=== PATIENT | male | born 1965 | race Caucasian/White ===

== ENCOUNTER 2022-03-17 12:31 | Inpatient (IN) | payer OTHER ==
[2022-03-17 16:01] VITALS: BMI 21.3
[2022-03-17] MEDS ORDERED: cloNIDine HCL 0.1 MG TABLET PO STA (16:08)
[2022-03-17] MEDS ORDERED: IBUPROFEN 400 MG TABLET (FP) PO PRN (16:11)
[2022-03-17] MEDS ORDERED: guaiFENesin 200 MG/10 ML 10 ML UNIT-DOSE CUPS PO PRN (16:11)
[2022-03-17] MEDS ORDERED: P-EPHED 60MG/TRIPROLIDI 2.5MG TABLET PO PRN (16:11)
[2022-03-17] MEDS ORDERED: MAGNESIUM HYDROX 2400MG/30ML ORAL SUSPENSION 30 ML CUP PO PRN (16:11)
[2022-03-17] MEDS ORDERED: NICOTINE 10 MG CARTRIDGE (INHALER) IH PRN (16:11)
[2022-03-17] MEDS ORDERED: LOPERAMIDE HCL 2 MG CAPSULE PO PRN (16:11)
[2022-03-17] MEDS ORDERED: MAG HYDROX/AL HYDROX/SIMETH 30 ML UNIT-DOSE CUP PO PRN (16:11)
[2022-03-17] MEDS ORDERED: MAGNESIUM CITRATE 300 ML BOTTLE PO PRN (16:11)
[2022-03-17] MEDS ORDERED: ACETAMINOPHEN 325 MG TABLET (FP) PO PRN (16:11)
[2022-03-17] MEDS ORDERED: cloNIDine HCL 0.1 MG TABLET ONE (16:17)
[2022-03-17] MEDS: hydrOXYzine PAMOATE 25 MG CAPSULE (FP) PO SCH ×2 (19:50→21:02)
[2022-03-17] MEDS: NICOTINE 7 MG/24 HOURS TOPICAL PATCH TD SCH (19:50)
[2022-03-17] MEDS: PRENATAL VITAMINS W/ FOLIC ACID TABLET (FP) PO SCH (19:50)
[2022-03-17] MEDS ORDERED: TUBERCULIN PPD 5 TU/0.1ML VIAL ID ONE (19:51)
[2022-03-17] MEDS: MELATONIN 5 MG TABLETS PO SCH (21:02)
[2022-03-17] MEDS: THIAMINE HCL 100 MG TABLET (FP) PO SCH (21:02)
[2022-03-18] MEDS: hydrOXYzine PAMOATE 25 MG CAPSULE (FP) PO SCH ×5 (06:02→21:05)
[2022-03-18] MEDS: PRENATAL VITAMINS W/ FOLIC ACID TABLET (FP) PO SCH (09:45)
[2022-03-18] MEDS: NICOTINE 7 MG/24 HOURS TOPICAL PATCH TD SCH (09:46)
[2022-03-18 11:30] LABS: CALCIUM 9.8 mg/dL (8.5-10.1)
[2022-03-18 11:31] LABS: BLOOD UREA NITROGEN 12.2 mg/dL (7-18)
[2022-03-18 11:35] LABS: BILIRUBIN,TOTAL 0.9 mg/dL (0.2-1); HEMATOCRIT 46.1 % (35.4-49); HEMOGLOBIN 15.7 GM/dL (11.7-16.9); MCH 32.9 pg (25.7-33.7); MEAN CELL VOLUME 96.7 fl (80-96); MEAN PLT VOLUME 7.5 fl (7.5-11.1); PLATELET COUNT 154 10^3/uL (134-434); RBC 4.77 M/mm3 (4.00-5.60); RDW 14.9 % (11.9-15.9); TOT PROT 7.1 g/dl (6.4-8.2); WHITE BLOOD COUNT 6.8 K/mm3 (4.0-10.0)
[2022-03-18] MEDS: amLODIPine BESYLATE 10 MG TABLET (FP) PO SCH (11:35)
[2022-03-18] MEDS ORDERED: FLU VACC QS2022-23(6MOS UP)/PF 60 MCG/0.5 ML SYRINGE IM ONE (12:00)
[2022-03-18 12:03] LABS: EPI CELLS 5 /uL (0-25.1); HYALINE CASTS 1 /uL (0-3.1); URINE APPEARANCE CLEAR; URINE BACTERIA 2 /uL (0-1359); URINE BILIRUBIN 1+ (NEGATIVE); URINE COLOR DK YELLOW; URINE GLUCOSE (UA) NEGATIVE (NEGATIVE); URINE KETONE 1+ (NEGATIVE); URINE LEUK ESTERASE TRACE (NEGATIVE); URINE NITRITE NEGATIVE (NEGATIVE); URINE PROTEIN TRACE (NEGATIVE); URINE RBC 15 /uL (0-23.9); URINE WBC 9 /uL (0-25.8)
[2022-03-18] MEDS: HYDROCHLOROTHIAZIDE 12.5 MG CAPSULE (FP) PO SCH (16:33)
[2022-03-18] MEDS: THIAMINE HCL 100 MG TABLET (FP) PO SCH (21:05)
[2022-03-18] MEDS: MELATONIN 5 MG TABLETS PO SCH (21:05)
[2022-03-19] MEDS: hydrOXYzine PAMOATE 25 MG CAPSULE (FP) PO SCH ×5 (06:01→21:09)
[2022-03-19] MEDS: PRENATAL VITAMINS W/ FOLIC ACID TABLET (FP) PO SCH (10:12)
[2022-03-19] MEDS: HYDROCHLOROTHIAZIDE 12.5 MG CAPSULE (FP) PO SCH (10:12)
[2022-03-19] MEDS: NICOTINE 7 MG/24 HOURS TOPICAL PATCH TD SCH (10:12)
[2022-03-19] MEDS: amLODIPine BESYLATE 10 MG TABLET (FP) PO SCH (10:12)
[2022-03-19] MEDS ORDERED: cloNIDine HCL 0.1 MG TABLET PO ONE (14:45)
[2022-03-19] MEDS: MELATONIN 5 MG TABLETS PO SCH (21:09)
[2022-03-19] MEDS: THIAMINE HCL 100 MG TABLET (FP) PO SCH (21:09)
[2022-03-19 22:12] LABS: SYPHILIS W/ RPR CONF NON-REACTIVE (NONREACTIVE)
[2022-03-20] MEDS: hydrOXYzine PAMOATE 25 MG CAPSULE (FP) PO SCH ×5 (06:18→21:07)
[2022-03-20] MEDS ORDERED: cloNIDine HCL 0.1 MG TABLET PO PRN (09:21)
[2022-03-20] MEDS: amLODIPine BESYLATE 10 MG TABLET (FP) PO SCH (10:05)
[2022-03-20] MEDS: HYDROCHLOROTHIAZIDE 25 MG TABLET (FP) PO SCH (10:05)
[2022-03-20] MEDS: PRENATAL VITAMINS W/ FOLIC ACID TABLET (FP) PO SCH (10:05)
[2022-03-20] MEDS: NICOTINE 7 MG/24 HOURS TOPICAL PATCH TD SCH (10:06)
[2022-03-20] MEDS: PATIENT'S OWN MEDICATION (NON-FORMULARY) (Carbamazepine [Carbamazepine Er] 100 MG Cpmp.12h PO SCH (21:06)
[2022-03-20] MEDS: THIAMINE HCL 100 MG TABLET (FP) PO SCH (21:07)
[2022-03-20] MEDS: levETIRAcetam 500 MG TABLET (FP) PO SCH (21:07)
[2022-03-20] MEDS: CARBAMAZEPINE 400 MG PO SCH (21:07)
[2022-03-20] MEDS: MELATONIN 5 MG TABLETS PO SCH (21:07)
[2022-03-21] MEDS: hydrOXYzine PAMOATE 25 MG CAPSULE (FP) PO SCH ×3 (06:46→14:31)
[2022-03-21] MEDS: levETIRAcetam 500 MG TABLET (FP) PO SCH ×2 (10:24→21:07)
[2022-03-21] MEDS: PRENATAL VITAMINS W/ FOLIC ACID TABLET (FP) PO SCH (10:24)
[2022-03-21] MEDS: CARBAMAZEPINE 400 MG PO SCH ×2 (10:25→21:07)
[2022-03-21] MEDS: HYDROCHLOROTHIAZIDE 25 MG TABLET (FP) PO SCH (10:25)
[2022-03-21] MEDS: NICOTINE 7 MG/24 HOURS TOPICAL PATCH TD SCH (10:25)
[2022-03-21] MEDS: amLODIPine BESYLATE 10 MG TABLET (FP) PO SCH (10:25)
[2022-03-21] MEDS: THIAMINE HCL 100 MG TABLET (FP) PO SCH (21:07)
[2022-03-21] MEDS: MELATONIN 5 MG TABLETS PO SCH (21:07)
[2022-03-21] MEDS: PATIENT'S OWN MEDICATION (NON-FORMULARY) (Carbamazepine [Carbamazepine Er] 100 MG Cpmp.12h PO SCH (21:07)
[2022-03-22] MEDS: hydrOXYzine PAMOATE 25 MG CAPSULE (FP) PO PRN (06:51)
[2022-03-22] MEDS: amLODIPine BESYLATE 10 MG TABLET (FP) PO SCH (09:58)
[2022-03-22] MEDS: levETIRAcetam 500 MG TABLET (FP) PO SCH ×2 (09:58→21:13)
[2022-03-22] MEDS: PRENATAL VITAMINS W/ FOLIC ACID TABLET (FP) PO SCH (09:58)
[2022-03-22] MEDS: HYDROCHLOROTHIAZIDE 25 MG TABLET (FP) PO SCH (09:58)
[2022-03-22] MEDS: CARBAMAZEPINE 400 MG PO SCH ×2 (09:59→21:13)
[2022-03-22] MEDS: NICOTINE 7 MG/24 HOURS TOPICAL PATCH TD SCH (09:59)
[2022-03-22] MEDS: THIAMINE HCL 100 MG TABLET (FP) PO SCH (21:13)
[2022-03-22] MEDS: PATIENT'S OWN MEDICATION (NON-FORMULARY) (Carbamazepine [Carbamazepine Er] 100 MG Cpmp.12h PO SCH (21:13)
[2022-03-22] MEDS: MELATONIN 5 MG TABLETS PO SCH (21:13)
[2022-03-23] MEDS: hydrOXYzine PAMOATE 25 MG CAPSULE (FP) PO PRN (06:12)
[2022-03-23] MEDS: PRENATAL VITAMINS W/ FOLIC ACID TABLET (FP) PO SCH (09:49)
[2022-03-23] MEDS: amLODIPine BESYLATE 10 MG TABLET (FP) PO SCH (09:50)
[2022-03-23] MEDS: levETIRAcetam 500 MG TABLET (FP) PO SCH ×2 (09:50→21:10)
[2022-03-23] MEDS: HYDROCHLOROTHIAZIDE 25 MG TABLET (FP) PO SCH (09:50)
[2022-03-23] MEDS: NICOTINE 7 MG/24 HOURS TOPICAL PATCH TD SCH (09:50)
[2022-03-23] MEDS: CARBAMAZEPINE 400 MG PO SCH ×2 (09:50→21:10)
[2022-03-23] MEDS: PATIENT'S OWN MEDICATION (NON-FORMULARY) (Carbamazepine [Carbamazepine Er] 100 MG Cpmp.12h PO SCH (21:10)
[2022-03-23] MEDS: THIAMINE HCL 100 MG TABLET (FP) PO SCH (21:10)
[2022-03-23] MEDS: MELATONIN 5 MG TABLETS PO SCH (21:10)
[2022-03-24] MEDS: hydrOXYzine PAMOATE 25 MG CAPSULE (FP) PO PRN (06:26)
[2022-03-24] MEDS: PRENATAL VITAMINS W/ FOLIC ACID TABLET (FP) PO SCH (10:00)
[2022-03-24] MEDS: amLODIPine BESYLATE 10 MG TABLET (FP) PO SCH (10:00)
[2022-03-24] MEDS: HYDROCHLOROTHIAZIDE 25 MG TABLET (FP) PO SCH (10:00)
[2022-03-24] MEDS: CARBAMAZEPINE 400 MG PO SCH ×2 (10:00→21:19)
[2022-03-24] MEDS: NICOTINE 7 MG/24 HOURS TOPICAL PATCH TD SCH (10:00)
[2022-03-24] MEDS: levETIRAcetam 500 MG TABLET (FP) PO SCH ×2 (10:00→21:18)
[2022-03-24] MEDS: MELATONIN 5 MG TABLETS PO SCH (21:18)
[2022-03-24] MEDS: THIAMINE HCL 100 MG TABLET (FP) PO SCH (21:18)
[2022-03-24] MEDS: PATIENT'S OWN MEDICATION (NON-FORMULARY) (Carbamazepine [Carbamazepine Er] 100 MG Cpmp.12h PO SCH (21:19)
[2022-03-25] MEDS: hydrOXYzine PAMOATE 25 MG CAPSULE (FP) PO PRN (07:06)
[2022-03-25] MEDS: amLODIPine BESYLATE 10 MG TABLET (FP) PO SCH (10:12)
[2022-03-25] MEDS: CARBAMAZEPINE 400 MG PO SCH ×2 (10:12→21:25)
[2022-03-25] MEDS: HYDROCHLOROTHIAZIDE 25 MG TABLET (FP) PO SCH (10:12)
[2022-03-25] MEDS: NICOTINE 7 MG/24 HOURS TOPICAL PATCH TD SCH (10:12)
[2022-03-25] MEDS: levETIRAcetam 500 MG TABLET (FP) PO SCH ×2 (10:12→21:25)
[2022-03-25] MEDS: PRENATAL VITAMINS W/ FOLIC ACID TABLET (FP) PO SCH (10:13)
[2022-03-25] MEDS: PATIENT'S OWN MEDICATION (NON-FORMULARY) (Carbamazepine [Carbamazepine Er] 100 MG Cpmp.12h PO SCH (21:24)
[2022-03-25] MEDS: MELATONIN 5 MG TABLETS PO SCH (21:25)
[2022-03-25] MEDS: THIAMINE HCL 100 MG TABLET (FP) PO SCH (21:25)
[2022-03-26] MEDS: hydrOXYzine PAMOATE 25 MG CAPSULE (FP) PO PRN (06:40)
[2022-03-26] MEDS: HYDROCHLOROTHIAZIDE 25 MG TABLET (FP) PO SCH (10:17)
[2022-03-26] MEDS: levETIRAcetam 500 MG TABLET (FP) PO SCH ×2 (10:17→21:05)
[2022-03-26] MEDS: PRENATAL VITAMINS W/ FOLIC ACID TABLET (FP) PO SCH (10:17)
[2022-03-26] MEDS: CARBAMAZEPINE 400 MG PO SCH ×2 (10:17→21:06)
[2022-03-26] MEDS: amLODIPine BESYLATE 10 MG TABLET (FP) PO SCH (10:17)
[2022-03-26] MEDS: NICOTINE 7 MG/24 HOURS TOPICAL PATCH TD SCH (10:17)
[2022-03-26] MEDS: MELATONIN 5 MG TABLETS PO SCH (21:05)
[2022-03-26] MEDS: THIAMINE HCL 100 MG TABLET (FP) PO SCH (21:05)
[2022-03-26] MEDS: PATIENT'S OWN MEDICATION (NON-FORMULARY) (Carbamazepine [Carbamazepine Er] 100 MG Cpmp.12h PO SCH (21:06)
[2022-03-27] MEDS: hydrOXYzine PAMOATE 25 MG CAPSULE (FP) PO PRN (06:02)
[2022-03-27] MEDS: amLODIPine BESYLATE 10 MG TABLET (FP) PO SCH (10:28)
[2022-03-27] MEDS: PRENATAL VITAMINS W/ FOLIC ACID TABLET (FP) PO SCH (10:28)
[2022-03-27] MEDS: levETIRAcetam 500 MG TABLET (FP) PO SCH ×2 (10:28→21:22)
[2022-03-27] MEDS: HYDROCHLOROTHIAZIDE 25 MG TABLET (FP) PO SCH (10:29)
[2022-03-27] MEDS: CARBAMAZEPINE 400 MG PO SCH ×2 (10:30→21:22)
[2022-03-27] MEDS: NICOTINE 7 MG/24 HOURS TOPICAL PATCH TD SCH (10:46)
[2022-03-27] MEDS: THIAMINE HCL 100 MG TABLET (FP) PO SCH (21:21)
[2022-03-27] MEDS: MELATONIN 5 MG TABLETS PO SCH (21:22)
[2022-03-27] MEDS: PATIENT'S OWN MEDICATION (NON-FORMULARY) (Carbamazepine [Carbamazepine Er] 100 MG Cpmp.12h PO SCH (21:22)
[2022-03-28] MEDS: hydrOXYzine PAMOATE 25 MG CAPSULE (FP) PO PRN (06:16)
[2022-03-28] MEDS: levETIRAcetam 500 MG TABLET (FP) PO SCH ×2 (10:41→21:09)
[2022-03-28] MEDS: CARBAMAZEPINE 400 MG PO SCH ×2 (10:41→21:09)
[2022-03-28] MEDS: NICOTINE 7 MG/24 HOURS TOPICAL PATCH TD SCH (10:41)
[2022-03-28] MEDS: PRENATAL VITAMINS W/ FOLIC ACID TABLET (FP) PO SCH (10:41)
[2022-03-28] MEDS: HYDROCHLOROTHIAZIDE 25 MG TABLET (FP) PO SCH (10:41)
[2022-03-28] MEDS: amLODIPine BESYLATE 10 MG TABLET (FP) PO SCH (10:41)
[2022-03-28] MEDS: THIAMINE HCL 100 MG TABLET (FP) PO SCH (21:09)
[2022-03-28] MEDS: PATIENT'S OWN MEDICATION (NON-FORMULARY) (Carbamazepine [Carbamazepine Er] 100 MG Cpmp.12h PO SCH (21:09)
[2022-03-28] MEDS: MELATONIN 5 MG TABLETS PO SCH (21:09)
[2022-03-29] MEDS: hydrOXYzine PAMOATE 25 MG CAPSULE (FP) PO PRN (06:11)
[2022-03-29 07:02] VITALS: RESP 18
[2022-03-29] MEDS: amLODIPine BESYLATE 10 MG TABLET (FP) PO SCH (10:02)
[2022-03-29] MEDS: CARBAMAZEPINE 400 MG PO SCH ×2 (10:02→21:05)
[2022-03-29] MEDS: PRENATAL VITAMINS W/ FOLIC ACID TABLET (FP) PO SCH (10:02)
[2022-03-29] MEDS: HYDROCHLOROTHIAZIDE 25 MG TABLET (FP) PO SCH (10:02)
[2022-03-29] MEDS: levETIRAcetam 500 MG TABLET (FP) PO SCH ×2 (10:02→21:05)
[2022-03-29] MEDS: NICOTINE 7 MG/24 HOURS TOPICAL PATCH TD SCH (10:03)
[2022-03-29] MEDS: THIAMINE HCL 100 MG TABLET (FP) PO SCH (21:05)
[2022-03-29] MEDS: MELATONIN 5 MG TABLETS PO SCH (21:05)
[2022-03-29] MEDS: PATIENT'S OWN MEDICATION (NON-FORMULARY) (Carbamazepine [Carbamazepine Er] 100 MG Cpmp.12h PO SCH (21:06)
[2022-03-30] MEDS: hydrOXYzine PAMOATE 25 MG CAPSULE (FP) PO PRN (06:06)
[2022-03-30 06:52] VITALS: TEMP 97.3
[2022-03-30] MEDS: PRENATAL VITAMINS W/ FOLIC ACID TABLET (FP) PO SCH (10:12)
[2022-03-30] MEDS: CARBAMAZEPINE 400 MG PO SCH ×2 (10:12→21:15)
[2022-03-30] MEDS: NICOTINE 7 MG/24 HOURS TOPICAL PATCH TD SCH (10:12)
[2022-03-30] MEDS: HYDROCHLOROTHIAZIDE 25 MG TABLET (FP) PO SCH (10:13)
[2022-03-30] MEDS: amLODIPine BESYLATE 10 MG TABLET (FP) PO SCH (10:13)
[2022-03-30] MEDS: levETIRAcetam 500 MG TABLET (FP) PO SCH ×2 (10:13→21:15)
[2022-03-30] MEDS: PATIENT'S OWN MEDICATION (NON-FORMULARY) (Carbamazepine [Carbamazepine Er] 100 MG Cpmp.12h PO SCH (21:14)
[2022-03-30] MEDS: MELATONIN 5 MG TABLETS PO SCH (21:14)
[2022-03-30] MEDS: THIAMINE HCL 100 MG TABLET (FP) PO SCH (21:14)
[2022-03-31 07:04] VITALS: BP 122/80; PULSE 76
[2022-03-31] MEDS: PRENATAL VITAMINS W/ FOLIC ACID TABLET (FP) PO SCH (10:23)
[2022-03-31] MEDS: CARBAMAZEPINE 400 MG PO SCH (10:23)
[2022-03-31] MEDS: NICOTINE 7 MG/24 HOURS TOPICAL PATCH TD SCH (10:24)
[2022-03-31] MEDS: amLODIPine BESYLATE 10 MG TABLET (FP) PO SCH (10:24)
[2022-03-31] MEDS: HYDROCHLOROTHIAZIDE 25 MG TABLET (FP) PO SCH (10:24)
[2022-03-31] MEDS: levETIRAcetam 500 MG TABLET (FP) PO SCH (10:24)
== END 2022-03-31 10:27 | disposition home or self-care (01) | DRG 772 ==
LOC: YASAS 12:31 → Y3W 18:51
PROVIDERS: ADMIT Allergy & Immunology; ATTEND Psychiatry & Neurology Pain Medicine
PROC: HZ42ZZZ Group Counseling for Substance Abuse Treatment, Cognitive-Behavioral (ICD-10-PCS; principal; 2022-03-17)
DX: F10.20 Alcohol dependence, uncomplicated (principal); G40.909 Epilepsy, unspecified, not intractable, without status epilepticus; I10 Essential (primary) hypertension
CPT/HCPCS: 36415; 80053; 81003; 85027; 86780; 86803; C9803-CS; G0008; Q2036; U0003; U0005